=== PATIENT | male | born 1940 | race Caucasian/White ===

== ENCOUNTER 2016-12-02 05:09 | Day surgery (SDC) | payer BC, MEDICARE ==
[2016-11-27 10:52] LABS: HEMATOCRIT 45.7 % (40.0-51.0); HEMOGLOBIN 15.8 g/dL (13.6-17.8)
[2016-11-27 11:05] LABS: BUN (BLOOD UREA NITROGEN) 13 MG/DL (6-23); CALCIUM, SERUM 8.6 MG/DL (8.5-10.4); CHLORIDE, SERUM 107 MMOL/L (96-112); CO2 (CARBON DIOXIDE) 26 MMOL/L (24-34); CREATININE 1.16 MG/DL (0.70-1.30); GFR AFRICAN AMERICAN 71 ML/MIN (>=60); GFR NON AFRICAN AMERICAN 61 ML/MIN (>=60); SODIUM, SERUM 142 MMOL/L (135-148)
[2016-11-27 11:06] LABS: GLUCOSE, SERUM 101 MG/DL (60-99)
--- NOTE | ~2016-12-02 | OP ---
Record Of Operation [facility] [address] [place]. [address] NAME: YVAN BURROWS : 42 STATUS : [facility] UNIT#: [id number] AGE: 76 ADM/REG DATE : 12/02/16 MR#: [id number] REPORT SERV DATE: 12/02/16 DICTATED BY: RICK LAL DATE: 12/02/16 REPORT STATUS : Draft TRANSCRIBED BY: MODL DATE: 12/02/16 DATE OF PROCEDURE: 12/02/2016 PREOPERATIVE DIAGNOSIS: Right inguinal hernia. POSTOPERATIVE DIAGNOSIS: Direct and indirect right inguinal hernia. OPERATION PERFORMED: Laparoscopic preperitoneal right inguinal hernia repair with Bard 3DMax Mesh. CORPORATE LAWYER: Helen Dickson M.D. ESTIMATED BLOOD LOSS: Less than 10 mL. IV FLUIDS: Adequate. INDICATION FOR PROCEDURE: Mr. Burrows is a 76-year-old who has developed a symptomatic right inguinal hernia. Full risks and benefits of surgery versus observation were discussed. He has opted for a laparoscopic repair. DESCRIPTION OF OPERATION: After appropriate sedation, the patient was prepped and draped in proper sterile fashion. Skin and subcutaneous tissues below the umbilicus were infiltrated with local anesthesia. Horizontal incision was made below the umbilicus. Subcutaneous tissues were incised down to the anterior rectus fascia. The right anterior rectus fascia was incised transversely. The right rectus muscle was elevated and a dissecting balloon was placed into the preperitoneal space. This was removed and a structural balloon was placed in the preperitoneal space and insufflated. There was excellent dissection from the balloon. Epigastric vessels were visualized. He had a direct inguinal hernia, which was visualized. Spermatic cord was also visualized at this point. We then placed two lower midline 5 mm trocars under direct visualization. The contents of the direct hernia were reduced. Spermatic cord was dissected out. It was noted to have a hernia sac along the spermatic cord. This was highly ligated with a 2-0 PDS Endoloop. A piece of Bard 3DMax mesh was cut with a slit on the inferior aspect and fashioned around spermatic cord, reconstructing the internal ring as well as covering Hesselbach triangle in the direct hernia. It was secured to Eliezer's ligament using a secure strap. Another tack was placed superiorly and medially. A third tack was placed superior and laterally. Once we were satisfied with the coverage, we instilled 20 mL of Marcaine into the preperitoneal space. Preperitoneal space was desufflated under direct visualization. The fascia at the infraumbilical trocar site was then closed using 0 Vicryl suture. The skin was closed using interrupted running 4-0 Monocryl suture. Steri-Strips and dressings were then placed. The patient was taken to the recovery room in satisfactory condition. [facility]/JEREMY Record Of [address] [address] NAME: YVAN BURROWS : 42 STATUS : [facility] UNIT#: [id number] AGE: 76 ADM/REG DATE : 12/02/16 MR#: [id number] REPORT SERV DATE: 12/02/16 DICTATED BY: RICK LAL DATE: 12/02/16 REPORT STATUS : Draft TRANSCRIBED BY: JEREMY DATE: 12/02/16 Rick Lal M.D. / [id number] CC: Talib Corrales M.D.
[~2016-12-02 05:09] MED LIST: ALLEGRA180 PO; AVODART PO; C5 PO; CARTIA XT240 MG/24 PO; COUMADIN7.5 MG PO; FLOMAX4 PO; LEVOXYL25 MCG PO; NORCO1 TA1 PO; NORV5 PO; P1 PO; POTASSIUM PO; SINGULAIR1 PO; ZANTAC150 MG PO
[2016-12-02 06:25] LABS: INTERNATIONAL NORMAL RATI 1.4 UNITS (-); PROTIME (NOT ORD) 16.7 SEC (12.0-14.5)
== END 2016-12-02 14:45 | disposition home or self-care (01) ==
LOC: SDC 05:09
PROVIDERS: Specialist
PROC: 0YU54JZ Supplement Right Inguinal Region with Synthetic Substitute, Percutaneous Endoscopic Approach (ICD-10-PCS; principal; 2016-12-02 07:00)
DX: K40.90 Unilateral inguinal hernia, without obstruction or gangrene, not specified as recurrent (principal); I10 Essential (primary) hypertension; I48.91 Unspecified atrial fibrillation; Z95.1 Presence of aortocoronary bypass graft; I25.10 Atherosclerotic heart disease of native coronary artery without angina pectoris; Z98.890 Other specified postprocedural states; Z85.51 Personal history of malignant neoplasm of bladder; E03.9 Hypothyroidism, unspecified; Z88.1 Allergy status to other antibiotic agents; Z79.899 Other long term (current) drug therapy; E89.0 Postprocedural hypothyroidism; I49.9 Cardiac arrhythmia, unspecified; R56.9 Unspecified convulsions; Z98.41 Cataract extraction status, right eye; Z98.42 Cataract extraction status, left eye; Z96.1 Presence of intraocular lens; Z79.01 Long term (current) use of anticoagulants; Z79.891 Long term (current) use of opiate analgesic; Z79.52 Long term (current) use of systemic steroids
CPT/HCPCS: 80048; 85014; 85018; 85610; 93005; A9270-GY; C1713; C1726; C1781; J0690; J2250; J2370; J2405; J2710; J3010